=== PATIENT | female | born 1970 | race American Indian/Alaskan Native ===

== ENCOUNTER 2017-05-25 19:24 | Emergency (ER) | payer MEDICAID, OTHER ==
[2017-05-25] MEDS ORDERED: Aspirin 81 MG Tab.Chew PO ONE (19:38)
--- NOTE | 2017-05-25 19:39 | EDM.PDOC ---
ED HPI GENERAL MEDICAL PROBLEM - General Chief Complaint: Chest Pain Stated Complaint: CHEST PAIN Time Seen by Provider: 05/25/17 19:38 Source of Information: Reports: Patient - History of Present Illness INITIAL COMMENTS - FREE TEXT/NARRATIVE: HISTORY AND PHYSICAL: History of present illness: [] Patient with history of anxiety presents with chest pain that began yesterday she rates 2-3 out of 10, is concerned today as she has left arm tingling no association with diaphoresis or shortness of breath no radiation to neck or jaw , pain in chest has resolved, she is concerned that she now has tingling No fever nausea vomiting chills sweats no chest pain shortness breath headache dizziness or palpitation no bowel or urine symptoms She of anxiety denies medications chronic illness or disease Patient is a smoker uses occasional alcohol, admits to methamphetamine use last used 2 days prior per patient however feels she is using daily History of tubal ligation and appendectomy Patient is a smoker Review of systems: As per history of present illness and below otherwise all systems reviewed and negative. Past medical history: As per history of present illness and as reviewed below otherwise noncontributory. Surgical history: As per history of present illness and as reviewed below otherwise noncontributory. Social history: No reported history of drug or alcohol abuse. Family history: As per history of present illness and as reviewed below otherwise noncontributory. Physical exam: HEENT: Atraumatic, normocephalic, pupils reactive, negative for conjunctival pallor or scleral icterus, mucous membranes moist, throat clear, neck supple, nontender, trachea midline. Lungs: Clear to auscultation, breath sounds equal bilaterally, chest nontender. Heart: S1S2, regular, negative for clicks, rubs, or JVD. Abdomen: Soft, nondistended, nontender. Negative for masses or hepatosplenomegaly. Negative for costovertebral tenderness. Pelvis: Stable nontender. Genitourinary: Deferred. Rectal: Deferred. Extremities: Atraumatic, negative for cords or calf pain. Neurovascular unremarkable. Neuro: Awake, alert, oriented. Cranial nerves II through XII unremarkable. Cerebellum unremarkable. Motor and sensory unremarkable throughout. Exam nonfocal. Diagnostics: []Lab as below EKG Chest 1 view Therapeutics: []Aspirin 324 mg chewable Lopressor 5 mg every 5 when necessary 3 Ativan 1 mg IV Normal saline bolus Lorazepam 0.5 mg by mouth twice a day #10 no refill Impression: Anxiety []Chest pain resolved- Hypertension uncontrolled likely secondary to drug use Substance abuse/methamphetamine abuse Definitive disposition and diagnosis as appropriate pending reevaluation and review of above. CHEST Pain Score (Numeric/FACES): 2 - Related Data Allergies Allergy/AdvReac Type Severity Reaction Status Date / Time No Known Allergies Allergy Verified 05/25/17 19:32 Home Meds: Home Meds . [No Known Home Meds] 12/23/15 [History] Past Medical History - Past Health History Medical/Surgical History: Denies Medical/Surgical History Social & Family History - Family History Family Medical History: Noncontributory - Tobacco Use Smoking Status *Q: Current Every Day Smoker Years of Tobacco use: 20 Packs/Tins Daily: 0.5 - Alcohol Use Days Per Week of Alcohol Use: 4 Number of Drinks Per Day: 5 Total Drinks Per Week: 20 - Recreational Drug Use Recreational Drug Use: Yes Drug Use in Last 12 Months: Yes Recreational Drug Type: Reports: Marijuana/Hashish, Methamphetamine ED ROS GENERAL - Review of Systems Review Of Systems: ROS reveals no pertinent complaints other than HPI. ED EXAM, GENERAL - Physical Exam Exam: See Below Course - Vital Signs Last Recorded V/S: Last Vital Signs Temp 36.3 C 05/25/17 19:32 Pulse 89 05/25/17 21:46 Resp 17 05/25/17 21:46 BP 143/98 H 05/25/17 21:46 Pulse Ox 98 05/25/17 21:46 - Orders/Labs/Meds Orders: Active Orders 24 hr Category Date Time Status EKG Documentation Completion [RC] STAT Care 05/25/17 19:36 Active Chest 1V Frontal [CR] Stat Exams 05/25/17 19:36 Taken DRUG SCREEN, URINE [URCHEM] Stat Lab 05/25/17 21:00 Received UA W/MICROSCOPIC [URIN] Stat Lab 05/25/17 21:00 Results Labs: Laboratory Tests 05/25/17 05/25/17 05/25/17 Range/Units 20:02 20:02 20:02 WBC 6.13 (4.0-11.0) K/uL RBC 4.59 (4.30-5.90) M/uL Hgb 15.1 (12.0-16.0) g/dL Hct 42.9 (36.0-46.0) % MCV 93.5 (80.0-98.0) fL MCH 32.9 H (27.0-32.0) pg MCHC 35.2 (31.0-37.0) g/dL RDW Std Deviation 42.2 (28.0-62.0) fl RDW Coeff of Paulo 12 (11.0-15.0) % Plt Count 223 (150-400) K/uL MPV 9.50 (7.40-12.00) fL Neut % (Auto) 63.5 (48.0-80.0) % Lymph % (Auto) 24.8 (16.0-40.0) % Pope % (Auto) 9.6 (0.0-15.0) % Eos % (Auto) 1.6 (0.0-7.0) % Baso % (Auto) 0.5 (0.0-1.5) % Neut # (Auto) 3.9 (1.4-5.7) K/uL Lymph # (Auto) 1.5 (0.6-2.4) K/uL Pope # (Auto) 0.6 (0.0-0.8) K/uL Eos # (Auto) 0.1 (0.0-0.7) K/uL Baso # (Auto) 0.0 (0.0-0.1) K/uL Nucleated RBC % 0.0 /100WBC Nucleated RBCs # 0 K/uL INR 0.97 (0.86-1.11) Sodium 137 (136-146) mmol/L Potassium 3.5 (3.5-5.1) mmol/L Chloride 100 (98-110) mmol/L Carbon Dioxide 24 (21-31) mmol/L BUN 12 (6.0-23.0) mg/dL Creatinine 0.9 (0.6-1.5) mg/dL Est Cr Clr Drug Dosing 67.91 mL/min Estimated GFR (MDRD) > 60.0 ml/min Glucose 110 (60-110) mg/dL Calcium 9.7 (8.8-10.8) mg/dL Total Bilirubin 0.8 (0.1-1.5) mg/dL AST 51 H (5-40) IU/L ALT 49 (8-54) IU/L Alkaline Phosphatase 71 (40-150) Creatine Kinase 67 (9-236) IU/L CK-MB (CK-2) 1.0 (0-6.6) ng/ml Troponin I (0.0-0.29) NG/ML Total Protein 7.9 (6.0-8.0) g/dL Albumin 4.6 (3.5-5.0) g/dL Globulin 3.3 (2.0-3.5) g/dL Albumin/Globulin Ratio 1.4 (1.3-2.8) Amylase 74 (10-90) U/L Lipase 80 (7-80) U/L Urine Color Urine Appearance Urine pH (5.0-8.0) Ur Specific [place] (1.001-1.035) Urine Protein (NEGATIVE) mg/dL Urine Glucose (UA) (NEGATIVE) mg/dL Urine Ketones (NEGATIVE) mg/dL Urine Occult Blood (NEGATIVE) Urine Nitrite (NEGATIVE) Urine Bilirubin (NEGATIVE) Urine Urobilinogen (<2.0) EU/dL Ur Leukocyte Esterase (NEGATIVE) 05/25/17 05/25/17 Range/Units 20:02 21:00 WBC (4.0-11.0) K/uL RBC (4.30-5.90) M/uL Hgb (12.0-16.0) g/dL Hct (36.0-46.0) % MCV (80.0-98.0) fL MCH (27.0-32.0) pg MCHC (31.0-37.0) g/dL RDW Std Deviation (28.0-62.0) fl RDW Coeff of Paulo (11.0-15.0) % Plt Count (150-400) K/uL MPV (7.40-12.00) fL Neut % (Auto) (48.0-80.0) % Lymph % (Auto) (16.0-40.0) % Pope % (Auto) (0.0-15.0) % Eos % (Auto) (0.0-7.0) % Baso % (Auto) (0.0-1.5) % Neut # (Auto) (1.4-5.7) K/uL Lymph # (Auto) (0.6-2.4) K/uL Pope # (Auto) (0.0-0.8) K/uL Eos # (Auto) (0.0-0.7) K/uL Baso # (Auto) (0.0-0.1) K/uL Nucleated RBC % /100WBC Nucleated RBCs # K/uL INR (0.86-1.11) Sodium (136-146) mmol/L Potassium (3.5-5.1) mmol/L Chloride (98-110) mmol/L Carbon Dioxide (21-31) mmol/L BUN (6.0-23.0) mg/dL Creatinine (0.6-1.5) mg/dL Est Cr Clr Drug Dosing mL/min Estimated GFR (MDRD) ml/min Glucose (60-110) mg/dL Calcium (8.8-10.8) mg/dL Total Bilirubin (0.1-1.5) mg/dL AST (5-40) IU/L ALT (8-54) IU/L Alkaline Phosphatase (40-150) Creatine Kinase (9-236) IU/L CK-MB (CK-2) (0-6.6) ng/ml Troponin I < 0.10 (0.0-0.29) NG/ML Total Protein (6.0-8.0) g/dL Albumin (3.5-5.0) g/dL Globulin (2.0-3.5) g/dL Albumin/Globulin Ratio (1.3-2.8) Amylase (10-90) U/L Lipase (7-80) U/L Urine Color YELLOW Urine Appearance HAZY Urine pH 7.0 (5.0-8.0) Ur Specific [place] 1.010 (1.001-1.035) Urine Protein TRACE (NEGATIVE) mg/dL Urine Glucose (UA) NEGATIVE (NEGATIVE) mg/dL Urine Ketones 15 H (NEGATIVE) mg/dL Urine Occult Blood LARGE H (NEGATIVE) Urine Nitrite NEGATIVE (NEGATIVE) Urine Bilirubin NEGATIVE (NEGATIVE) Urine Urobilinogen 0.2 (<2.0) EU/dL Ur Leukocyte Esterase NEGATIVE (NEGATIVE) Meds: Medications Discontinued Medications Generic Name Dose Route Start Last Admin Trade Name Freq PRN Reason Stop Dose Admin Aspirin 324 mg 05/25/17 19:38 05/25/17 20:03 Aspirin PO 08/20/17 19:39 324 mg ONETIME ONE Administration Enalaprilat 1.25 mg 05/25/17 20:36 05/25/17 21:40 Vasotec Iv IVPUSH 05/25/17 20:37 1.25 mg ONETIME ONE Administration Sodium Chloride 1,000 mls @ 999 mls/hr 05/25/17 20:37 05/25/17 21:26 Normal Saline IV 05/25/17 21:37 999 mls/hr STAT ONE Administration Lorazepam 1 mg 05/25/17 19:41 05/25/17 20:08 Ativan IVPUSH 05/25/17 19:42 1 mg ONETIME ONE Administration Metoprolol Tartrate 5 mg 05/25/17 19:45 05/25/17 20:05 Lopressor IVPUSH 05/25/17 19:56 5 mg Q5M MILADY Administration Departure - Departure Time of Disposition: 21:50 Disposition: Home, Self-Care 01 Condition: Good Clinical Impression: Anxiety, Methamphetamine abuse - Discharge Information Forms: ED Department Discharge Additional Instructions: Medication as prescribed Return if symptoms persist or worsen Follow-up with primary care in 2 weeks sooner as needed [facility] [address] [place] [address] The following information is given to patients seen in the emergency department who are being discharged to home. This information is to outline your options for follow-up care. We provide all patients seen in our emergency department with a follow-up referral. The need for follow-up, as well as the timing and circumstances, are variable depending upon the specifics of your emergency department visit. If you don't have a primary care physician on staff, we will provide you with a referral. We always advise you to contact your personal physician following an emergency department visit to inform them of the circumstance of the visit and for follow-up with them and/or the need for any referrals to a consulting specialist. The emergency department will also refer you to a specialist when appropriate. This referral assures that you have the opportunity for follow-up care with a specialist. All of these measure are taken in an effort to provide you with optimal care, which includes your follow-up. Under all circumstances we always encourage you to contact your private physician who remains a resource for coordinating your care. When calling for follow-up care, please make the office aware that this follow-up is from your recent emergency room visit. If for any reason you are refused follow-up, please contact the [facility] emergency department at and asked to speak to the emergency department charge nurse. - My Orders Last 24 Hours: My Active Orders 05/25/17 19:36 EKG Documentation Completion [RC] STAT Chest 1V Frontal [CR] Stat 05/25/17 21:00 DRUG SCREEN, URINE [URCHEM] Stat UA W/MICROSCOPIC [URIN] Stat - Assessment/Plan Last 24 Hours: My Active Orders 05/25/17 19:36 EKG Documentation Completion [RC] STAT Chest 1V Frontal [CR] Stat 05/25/17 21:00 DRUG SCREEN, URINE [URCHEM] Stat UA W/MICROSCOPIC [URIN] Stat
[2017-05-25] MEDS ORDERED: LORazepam 2 MG/ML MDV IVPUSH ONE (19:41)
[2017-05-25] MEDS: Metoprolol Tartrate 5 MG/5 ML SDV IVPUSH SCH ×2 (20:05→20:15)
[2017-05-25 20:35] LABS: CHLORIDE,CL 100 mmol/L (98-110); SODIUM,NA 137 mmol/L (136-146)
[2017-05-25] MEDS ORDERED: Enalaprilat 1.25 MG/ML SDV IVPUSH ONE (20:36)
[2017-05-25] MEDS ORDERED: Sodium Chloride 0.9% 1,000 ML IV ONE (20:37)
[2017-05-26 08:01] VITALS: BP 136/92
--- NOTE | 2017-05-26 16:21 | CR ---
EXAM DATE: 05/25/17 PATIENT'S AGE: 47 Patient: EVGENY DAVIS Facility: [place], [place] Site . Site : [id number] Study: XRay Chest [id number]/20/2017 8:19:34 PM Ordering Physician: Sofya Peter Final Report: HISTORY: Chest pain. TECHNIQUE: One view of the chest. COMPARISON: 04/19/2016. FINDINGS: The cardiac size and pulmonary vasculature are within normal limits. There is no acute lung infiltrate or pulmonary edema. No pneumothorax. No moderate or large pleural effusion. IMPRESSION: No acute disease. Dictated by Hans Garrison MD @ 05/25/2017 8:39:38 PM Dictated by: Hans Garrison MD @ 05/25/2017 20:39:42 (Electronic Signature) Report Signed by Proxy. [facility]ERSherrie
== END 2017-05-25 23:01 | disposition home or self-care (01) ==
LOC: MW.ED 19:24
DX: F41.9 Anxiety disorder, unspecified (principal); R07.9 Chest pain, unspecified; F15.10 Other stimulant abuse, uncomplicated; I10 Essential (primary) hypertension; F17.210 Nicotine dependence, cigarettes, uncomplicated; Z90.49 Acquired absence of other specified parts of digestive tract; Z98.51 Tubal ligation status
CPT/HCPCS: 36415; 71010; 80053; 81001; 82150; 82550; 82553; 83690; 84484; 85025; 85610; 93005; 96361; 96374; 96375; 99285; A9270; G0478; J2060; J7040; 80305; 99283

== ENCOUNTER 2024-01-26 11:20 | Emergency (ER) | payer SELFPAY ==
[2024-01-26] MEDS: Acetaminophen/HYDROcodone 325-10 MG Tab PO STA (13:36)
[2024-01-26 19:44] VITALS: BP 158/82; PULSE 77
== END 2024-01-26 14:05 | disposition home or self-care (01) ==
LOC: MW.ED 11:20
DX: S52.502A Unspecified fracture of the lower end of left radius, initial encounter for closed fracture (principal); V00.211A Fall from ice-skates, initial encounter; Y93.21 Activity, ice skating
CPT/HCPCS: 29105; 73080; 73090; 73110; 73130; 99283; A9270

== ENCOUNTER 2024-06-17 16:41 | Emergency (ER) | payer BC, MEDICAID ==
[2024-06-17 17:24] LABS: BASOPHILS ABSOLUTE AUTO 0.06 K/uL (0.00-0.20); BASOPHILS PERCENT AUTO 1.1 % (0.0-1.0); EOSINOPHILS ABSOLUTE AUTO 0.13 K/uL (0.00-0.45); EOSINOPHILS PERCENT AUTO 2.3 % (0.0-6.0); HEMATOCRIT 43.1 % (37.0-47.0); HEMOGLOBIN 14.7 g/dL (12.0-16.0); IMMATURE GRAN ABSOLUTE AUTO 0.03 K/uL (0.00-0.05); IMMATURE GRAN PERCENT AUTO 0.5 % (0.0-0.4); LYMPHOCYTES ABSOLUTE AUTO 2.65 K/uL (1.00-4.80); LYMPHOCYTES PERCENT AUTO 46.4 % (24.0-44.0); MEAN CORPUSCULAR HEMOGLOBIN 31.4 pg (28.0-32.0); MEAN CORPUSCULAR HGB CONC 34.1 g/dL (32.0-36.0); MEAN CORPUSCULAR VOLUME 92.1 fL (83.0-99.0); MEAN PLATELET VOLUME 9.8 fL (9.4-12.3); MONOCYTES ABSOLUTE AUTO 0.54 K/uL (0.00-0.80); MONOCYTES PERCENT AUTO 9.5 % (0.0-8.0); NEUTROPHILS PERCENT AUTO 40.2 % (41.0-71.0); PLATELET COUNT,PLT 197 K/uL (150-400); RED BLOOD CELL COUNT 4.68 M/uL (4.10-5.30); WHITE BLOOD CELL COUNT,WBC 5.71 K/uL (3.9-11.3)
[2024-06-17] MEDS: Folic Acid 1 MG Tab PO ONE (17:45)
[2024-06-17] MEDS: Multivitamin Tab PO ONE (17:45)
[2024-06-17] MEDS: Thiamine 100 MG Tab PO ONE (17:45)
[2024-06-17 17:49] LABS: APPEARANCE,URINE CLEAR; BILIRUBIN,URINE NEGATIVE (NEGATIVE); GLUCOSE,URINE NEGATIVE (NEGATIVE); KETONES,URINE NEGATIVE (NEGATIVE); LEUKOCYTE ESTERASE,URINE NEGATIVE (NEGATIVE); NITRITE,URINE NEGATIVE (NEGATIVE); OCCULT BLOOD,URINE SMALL (NEGATIVE); PROTEIN,URINE NEGATIVE (NEGATIVE); UROBILINOGEN,URINE 0.2 EU/dL (<2.0)
[2024-06-17 17:51] LABS: COLOR,URINE STRAW
[2024-06-17 18:00] LABS: AMPHETAMINES SCREEN, URINE NEGATIVE (CUTOFF=500); BARBITURATE SCREEN,URINE NEGATIVE (CUTOFF=200); BENZODIAZEPINES SCREEN,URINE NEGATIVE (CUTOFF=150); BUPRENORPHINE SCREEN,URINE NEGATIVE (CUTOFF=10); METHADONE SCREEN, URINE NEGATIVE (CUTOFF=200); METHAMPHETAMINES SCREEN, URINE NEGATIVE (CUTOFF=500); OXYCODONE SCREEN,URINE NEGATIVE (CUT0FF=100); PCP SCREEN,URINE NEGATIVE (CUTOFF=25); THC SCREEN,URINE 20 NG/ML PRESUMPTIVE POSITIVE (CUTOFF=50)
[2024-06-17 18:02] LABS: A/G RATIO 1.1 (0.9-1.6); ACETAMINOPHEN <2.0 ug/mL; ALANINE AMINOTRANSFERASE,ALT 62 IU/L (14-63); ALBUMIN 4.2 g/dL (3.4-5.0); ALKALINE PHOSPHATASE 74 U/L (46-116); ASPARTATE AMNIOTRANSFERASE,AST 43 IU/L (15-37); BILIRUBIN TOTAL 0.4 mg/dL (0.2-1.0); BLOOD UREA NITROGEN,BUN 9 mg/dL (7.0-18.0); CALCIUM 8.8 mg/dL (8.5-10.1); CARBON DIOXIDE,CO2 28.3 mmol/L (21.0-32.0); CHLORIDE,CL 106 mmol/L (98-107); CREATININE 0.9 mg/dL (0.6-1.0); EST CRCL DRUG DOSING (CG) 60.49 mL/min; GLUCOSE RANDOM 92 mg/dL (74-106); MAGNESIUM 2.2 mg/dL (1.8-2.4); PROTEIN TOTAL,TP 7.9 g/dL (6.4-8.2); SALICYLATE 4.2 mg/dL (0.0-20.0); SODIUM,NA 145 mmol/L (136-145); T3 FREE 2.79 pg/mL (2.18-3.98); T4 FREE 0.82 ng/dL (0.76-1.46); TSH ULTRASENSITIVE 2.43 uIU/mL (0.36-3.74)
[2024-06-17 18:03] LABS: BACTERIA,URINE NOT SEEN (NEGATIVE); EPITHELIAL CELLS,URINE OCCASIONAL (NONE-FEW); RBC,URINE 0-2 (0-2/HPF); WBC,URINE NONE SEEN (0-5/HPF)
[2024-06-17 18:07] LABS: ESTIMATED GFR 77 mL/min (>60); ETHANOL BLOOD MEDICAL 404 mg/dL
[2024-06-17 19:27] VITALS: BP 140/87; PULSE 85
== END 2024-06-17 19:28 | disposition home or self-care (01) ==
LOC: MW.ED 16:41
DX: F10.120 Alcohol abuse with intoxication, uncomplicated (principal); F12.99 Cannabis use, unspecified with unspecified cannabis-induced disorder; Z86.59 Personal history of other mental and behavioral disorders; Z90.49 Acquired absence of other specified parts of digestive tract; Z75.8 Other problems related to medical facilities and other health care
CPT/HCPCS: 36415; 80053; 80143; 80179; 80305; 80307; 81001; 83735; 84439; 84443; 84481; 85025; 99284; A9270

== ENCOUNTER 2024-06-18 11:18 | Emergency (ER) | payer BC, MEDICAID ==
[2024-06-18] MEDS ORDERED: Sodium Chloride 0.9% 10 ML Syringe FLUSH PRN (11:40)
[2024-06-18 12:31] LABS: BASOPHILS ABSOLUTE AUTO 0.05 K/uL (0.00-0.20); BASOPHILS PERCENT AUTO 0.9 % (0.0-1.0); EOSINOPHILS ABSOLUTE AUTO 0.04 K/uL (0.00-0.45); EOSINOPHILS PERCENT AUTO 0.7 % (0.0-6.0); HEMATOCRIT 41.7 % (37.0-47.0); HEMOGLOBIN 14.3 g/dL (12.0-16.0); IMMATURE GRAN ABSOLUTE AUTO 0.02 K/uL (0.00-0.05); IMMATURE GRAN PERCENT AUTO 0.4 % (0.0-0.4); LYMPHOCYTES ABSOLUTE AUTO 1.46 K/uL (1.00-4.80); LYMPHOCYTES PERCENT AUTO 25.7 % (24.0-44.0); MEAN CORPUSCULAR HEMOGLOBIN 31.7 pg (28.0-32.0); MEAN CORPUSCULAR HGB CONC 34.3 g/dL (32.0-36.0); MEAN CORPUSCULAR VOLUME 92.5 fL (83.0-99.0); MEAN PLATELET VOLUME 9.6 fL (9.4-12.3); MONOCYTES ABSOLUTE AUTO 0.46 K/uL (0.00-0.80); MONOCYTES PERCENT AUTO 8.1 % (0.0-8.0); NEUTROPHILS ABSOLUTE AUTO 3.65 K/uL (1.80-7.70); NEUTROPHILS PERCENT AUTO 64.2 % (41.0-71.0); PLATELET COUNT,PLT 186 K/uL (150-400); RED BLOOD CELL COUNT 4.51 M/uL (4.10-5.30); WHITE BLOOD CELL COUNT,WBC 5.68 K/uL (3.9-11.3)
[2024-06-18 13:02] LABS: A/G RATIO 1.2 (0.9-1.6); ALBUMIN 4.3 g/dL (3.4-5.0); BILIRUBIN TOTAL 0.7 mg/dL (0.2-1.0); CALCIUM 8.7 mg/dL (8.5-10.1); CARBON DIOXIDE,CO2 26.7 mmol/L (21.0-32.0); EST CRCL DRUG DOSING (CG) 52.05 mL/min; POTASSIUM,K 4.1 mmol/L (3.5-5.1); PROTEIN TOTAL,TP 7.9 g/dL (6.4-8.2)
[2024-06-18] MEDS: Diazepam 5 MG Tab PO ONE (13:06)
[2024-06-18 13:13] VITALS: BP 125/87; PULSE 88
== END 2024-06-18 13:17 | disposition home or self-care (01) ==
LOC: MW.ED 11:18
DX: F10.130 Alcohol abuse with withdrawal, uncomplicated (principal); F10.120 Alcohol abuse with intoxication, uncomplicated; Z90.49 Acquired absence of other specified parts of digestive tract; F17.210 Nicotine dependence, cigarettes, uncomplicated
CPT/HCPCS: 36415; 80053; 80307; 83735; 85025; 99284; A9270